=== PATIENT | male | born 1970 | race Caucasian/White ===

== ENCOUNTER 2019-10-27 13:56 | Emergency (ER) | payer MEDICAID ==
[~2019-10-27] VITALS: Ht 175.3 cm; Wt 88.6 kg
[~2019-10-27 13:56] MED LIST: GABA-530 PO
[2019-10-27 14:06] VITALS: BP 148/92
[2019-10-27] MEDS ORDERED: LIDOcaine 1% 30ml preserv. free vial SQ STA (15:22)
[2019-10-27] MEDS ORDERED: ketorolac tromethamine 15mg/ml inj. IM ONE (15:25)
[2019-10-27] MEDS ORDERED: LIDO700A32 TOP (15:53)
[2019-10-27] MEDS ORDERED: IBUP-1984 PO (15:53)
== END 2019-10-27 16:09 | disposition home or self-care (01) ==
LOC: ER 13:56
DX: S39.012A Strain of muscle, fascia and tendon of lower back, initial encounter (principal); M54.30 Sciatica, unspecified side; G89.29 Other chronic pain; Z79.899 Other long term (current) drug therapy; X58.XXXA Exposure to other specified factors, initial encounter; Y93.89 Activity, other specified; Y92.89 Other specified places as the place of occurrence of the external cause; Y99.8 Other external cause status
CPT/HCPCS: 20552; 96372; 99284; J1885

== ENCOUNTER 2019-11-28 12:49 | Emergency (ER) | payer MEDICAID ==
[~2019-11-28] VITALS: Ht 175.3 cm; Wt 93.2 kg
[~2019-11-28 12:49] MED LIST changes: +LIDO700A32 TOP
[2019-11-28 13:00] VITALS: BP 138/88
[2019-11-28] MEDS ORDERED: ketorolac trometh inj. 60 MG/2 ML VIAL IM ONE (13:25)
[2019-11-28] MEDS ORDERED: HYDROcodone/acetaminophen 5mg/325mg tablet PO ONE (13:25)
[2019-11-28] MEDS ORDERED: ACET-3067 PO (13:47)
[2019-11-28] MEDS ORDERED: CYCL-1 PO (13:47)
== END 2019-11-28 14:22 | disposition home or self-care (01) ==
LOC: ER 12:50
DX: M54.42 Lumbago with sciatica, left side (principal); G89.29 Other chronic pain; M25.561 Pain in right knee; E78.00 Pure hypercholesterolemia, unspecified; I10 Essential (primary) hypertension; Z79.899 Other long term (current) drug therapy
CPT/HCPCS: 72100; 73502; 96372; 99284; J1885

== ENCOUNTER 2020-04-02 09:37 | Outpatient (CLI) | payer MEDICAID ==
[2020-04-02] VITALS (8 sets, daily range): BP systolic 115–146; BP diastolic 67–83
[~2020-04-02] VITALS: Ht 175.3 cm; Wt 93.0 kg
[~2020-04-02 09:37] MED LIST changes: +CYCL-1 PO
[2020-04-02] MEDS ORDERED: nitroGLYCERIN 0.4mg SUBLingual tab SL PRN (10:50)
[2020-04-02] MEDS ORDERED: normal saline 500ml IV soln 500 ML IV ONE (10:50)
[2020-04-02] MEDS ORDERED: aminophylline 250mg/10ml inj. IV PRN (10:50)
[2020-04-02] MEDS ORDERED: regadenoson 0.4mg/5ml syringe IV PRN (10:50)
== END 2020-04-02 23:59 | disposition home or self-care (01) ==
LOC: RAD 09:37
PROVIDERS: ATTEND Internal Medicine Cardiovascular Disease
DX: Z01.810 Encounter for preprocedural cardiovascular examination (principal); R07.9 Chest pain, unspecified
CPT/HCPCS: 78452; 93017; A9500; J0280; J2785; J7040